=== PATIENT | female | born 1960 | race Caucasian/White ===

== ENCOUNTER 2021-02-21 07:04 | Observation (INO) | payer OTHER ==
[~2021-02-21] VITALS: Ht 167.6 cm; Wt 91.2 kg
[~2021-02-21 07:04] MED LIST: AMLODIPINE BESYL5 MG PO; CYMBALTA30 MG PO; GABAPENTIN300 MG PO; HYDROCHLOROTHIA25 MG PO; LIPITOR10 MG PO; MOBIC7.5 MG PO; MONTELUKAST SOD10 MG PO; NEXIUM40 MG PO; PLAQUENIL200 MG PO; PROVENTIL HFA6.7 GM INH; ROPINIROLE HC0.25 MG PO; SERTRALINE HCL100 MG PO; VALTREX500 MG PO; ZETIA10 MG PO
[2021-02-21] MEDS ORDERED: ROPIVACAINE 246.25 MG, EPINEPHRINE HCL 1:1000 1ML 0.5 MG, CLONIDINE HCL 0.08 MG, KETORO... INJ ONE ×5 (07:30)
[2021-02-21] MEDS ORDERED: CELECOXIB 200 MG CAP ONE (07:49)
[2021-02-21] MEDS ORDERED: CEFAZOLIN SOD 1 GM/NS 50ML 100 ML IV ONE (07:50)
[2021-02-21] MEDS ORDERED: GABAPENTIN 300 MG CAP ONE (07:50)
[2021-02-21] MEDS ORDERED: DEXAMETHASONE SOD PHOS 10 MG/1 ML VIAL ONE (07:50)
[2021-02-21] MEDS ORDERED: TRANEXAMIC ACID 1,000 MG/10 ML ML ONE (09:24)
[2021-02-21] MEDS ORDERED: VANCOMYCIN HCL 1,000 MG ONE (09:24)
[2021-02-21] MEDS ORDERED: SODIUM CHLORIDE 0.9% 500ML 500 ML ONE (09:24)
[2021-02-21] MEDS ORDERED: DOCUSATE SODIUM 100 MG CAP PO PRN (11:30)
[2021-02-21] MEDS ORDERED: HYDROCODONE/APAP 5MG-325MG TAB PO PRN (11:30)
[2021-02-21] MEDS: SODIUM CHLORIDE 0.9% 1000ML 1,000 ML IV SCH ×2 (11:30→21:30)
[2021-02-21] MEDS ORDERED: ACETAMINOPHEN 650 MG SUPP PR PRN (11:30)
[2021-02-21] MEDS ORDERED: DIPHENHYDRAMINE HCL INJ 50 MG/ML VIAL IV PRN (11:30)
[2021-02-21] MEDS ORDERED: ONDANSETRON HCL INJ 2MG/ML 2ML 2 MG/ML VIAL IV PRN (11:30)
[2021-02-21] MEDS ORDERED: ZOLPIDEM TARTRATE 5 MG TAB PO PRN (11:30)
[2021-02-21] MEDS ORDERED: HYDROMORPHONE 1MG/1ML INJ ONE (11:47)
[2021-02-21] MEDS ORDERED: MORPHINE SULFATE INJ 10 MG/ML ONE (11:59)
[2021-02-21 13:00] VITALS: BP 149/68
[2021-02-21 13:11] VITALS: BP 149/68
[2021-02-21] MEDS ORDERED: CEFAZOLIN SOD 1 GM/NS 50ML 50 ML IV SCH (14:00)
[2021-02-21] MEDS ORDERED: MIDAZOLAM HCL 2 MG/2 ML VIAL ONE (14:45)
[2021-02-21] MEDS ORDERED: FENTANYL CITRATE/PF 100MCG/2 ML INJ ONE (14:45)
[2021-02-21 16:34] VITALS: BP 131/70
[2021-02-21] MEDS ORDERED: ROPIVACAINE 0.5% 5 MG/ML 30 ML SDV ONE (16:47)
[2021-02-21] MEDS: CELECOXIB 100 MG CAP PO SCH (17:27)
[2021-02-21] MEDS: ASPIRIN 325 MG TAB PO SCH (17:27)
[2021-02-21] MEDS ORDERED: ROCURONIUM BROMIDE 10 MG/ML 5ML VIAL IV ONE (18:02)
[2021-02-21] MEDS ORDERED: SEVOFLURANE INHAL SOLN 250 ML PEN BTL ONE (18:02)
[2021-02-21] MEDS ORDERED: PROPOFOL IV EMULSION 10 MG/ML 20 ML VIAL ONE (18:02)
[2021-02-21] MEDS ORDERED: EPHEDRINE SULFATE INJ 50 MG/ML VIAL ONE (18:02)
[2021-02-21] MEDS ORDERED: LIDOCAINE HCL 2% LOCAL INJ 5 ML SDV VIAL INJ ONE (18:02)
[2021-02-21] MEDS ORDERED: POVIDONE IODINE 0.05% 0.05 % ML PO ONE (18:02)
[2021-02-21] MEDS ORDERED: ONDANSETRON HCL INJ 2MG/ML 2ML 2 MG/ML VIAL ONE (18:02)
[2021-02-21] MEDS ORDERED: DEXAMETHASONE SOD PHOS INJ 4 MG/ML VIAL ONE (18:02)
[2021-02-21] MEDS ORDERED: LABETALOL HCL 5 MG/ML 20ML VIAL ONE (18:02)
[2021-02-21] MEDS ORDERED: HYDRALAZINE HCL 20 MG/ML VIAL ONE (18:02)
[2021-02-21] MEDS ORDERED: GLYCOPYRROLATE INJ 0.2 MG/ML VIAL ONE (18:02)
[2021-02-21] MEDS: HYDROCODONE/APAP 7.5MG-325MG 1 EA TAB PO PRN (19:45)
[2021-02-21 20:00] VITALS: BP 116/51
[2021-02-21 21:00] VITALS: BP 116/51
[2021-02-22] VITALS: BP 138/59
[2021-02-22] MEDS: HYDROCODONE/APAP 7.5MG-325MG 1 EA TAB PO PRN ×4 (00:42→06:25)
[2021-02-22] MEDS: KETOROLAC TROMETHAMINE 30 MG/ML VIAL IV PRN ×2 (00:48→07:45)
[2021-02-22] MEDS: CEFAZOLIN SOD 1 GM/NS 50ML 50 ML IV SCH ×2 (02:00→09:43)
[2021-02-22 04:00] VITALS: BP 134/67
[2021-02-22 05:01] LABS: HEMATOCRIT 31.7 % (34.2-44.1); HEMOGLOBIN 10.2 g/dL (12.0-16.0)
[2021-02-22 08:15] VITALS: BP 128/51
[2021-02-22] MEDS ORDERED: MONTELUKAST SODIUM 10 MG TAB PO SCH (09:00)
[2021-02-22] MEDS ORDERED: HYDROXYCHLOROQUINE SULFATE 200 MG TAB PO SCH (09:00)
[2021-02-22] MEDS ORDERED: GABAPENTIN 300 MG CAP PO SCH (09:00)
[2021-02-22] MEDS ORDERED: DULOXETINE HCL 30 MG DELAYED RELEASE PO SCH (09:00)
[2021-02-22] MEDS: ASPIRIN 325 MG TAB PO SCH (09:00)
[2021-02-22 09:01] VITALS: BP 119/77
[2021-02-22] MEDS: CELECOXIB 100 MG CAP PO SCH (09:43)
[2021-02-22] MEDS ORDERED: ACETAMINOPHEN 1000 MG/100 ML IV PRN (11:30)
[2021-02-22] MEDS ORDERED: HYDROCHLOROTHIAZIDE 25 MG TAB PO SCH (21:00)
[2021-02-22] MEDS ORDERED: AMLODIPINE BESYLATE 5 MG TAB PO SCH (21:00)
[2021-02-22] MEDS ORDERED: SERTRALINE HCL 100 MG TAB PO SCH (21:00)
[2021-02-22] MEDS ORDERED: ATORVASTATIN 40 MG TAB PO SCH (21:00)
[2021-02-22] MEDS ORDERED: EZETIMIBE 10 MG TAB PO SCH (21:00)
== END 2021-02-22 10:43 | disposition home or self-care (01) ==
LOC: OR 07:04 → PACU V 11:21 → MED/SURG 12:18
PROVIDERS: ADMIT Specialist; ATTEND Specialist
DX: M17.12 Unilateral primary osteoarthritis, left knee (principal); E78.00 Pure hypercholesterolemia, unspecified; I10 Essential (primary) hypertension; M32.9 Systemic lupus erythematosus, unspecified; M47.812 Spondylosis without myelopathy or radiculopathy, cervical region; E78.5 Hyperlipidemia, unspecified; J44.9 Chronic obstructive pulmonary disease, unspecified; Z87.891 Personal history of nicotine dependence; Z88.8 Allergy status to other drugs, medicaments and biological substances; Z82.49 Family history of ischemic heart disease and other diseases of the circulatory system; D64.9 Anemia, unspecified; F41.9 Anxiety disorder, unspecified; E66.9 Obesity, unspecified; Z68.32 Body mass index [BMI] 32.0-32.9, adult; Z01.812 Encounter for preprocedural laboratory examination; Z20.822 Contact with and (suspected) exposure to COVID-19
CPT/HCPCS: 27447; 36415; 73560; 85014; 85018; 86850; 86900; 86920; 97110; 97116 ×2; 97161; 97530; C1713; G0378 ×2; J0171; J0360; J0690 ×2; J1100 ×2; J1170; J1885 ×2; J2001; J2250; J2270; J2405; J2704; J2795; J3010; J3370; J3490; J7030; J7040; U0002